=== PATIENT | male | born 1940 | race Caucasian/White ===

== ENCOUNTER 2022-04-09 18:58 | Emergency (ER) | payer MEDICARE, MEDICAID ==
[~2022-04-09] VITALS: Ht 154.9 cm; Wt 49.0 kg
[~2022-04-09 18:58] MED LIST: ALBU2.5V13 IH
[2022-04-09 19:11] VITALS: BP 134/95
== END 2022-04-09 21:28 | disposition home or self-care (01) ==
LOC: ER 18:58
DX: Z43.3 Encounter for attention to colostomy (principal); Z48.00 Encounter for change or removal of nonsurgical wound dressing; I10 Essential (primary) hypertension; J45.909 Unspecified asthma, uncomplicated
CPT/HCPCS: 99281